=== PATIENT | male | born 1975 | race Two or more races ===

== ENCOUNTER → 2019-06-06 | Day surgery (SDC) | payer OTHER ==
[~2019-06-06] MED LIST: BUPIVACAINE 0.25% INJ 50ML VIAL ONE; DexAMETHasone SOD PHOS 10MG/1ML VIAL INJ ONE; LIDOCAINE 1% HCL (LOCAL ANESTH.) INJ 20ML MDV ONE; MEPERIDINE HCL (25 MG/ML) 1ML VIAL ONE; MIDAZOLAM HCL 1MG/1ML-2 ML VIAL ONE; ONDANSETRON HCL 4 MG/2 ML VIAL ONE; PROPOFOL 10 MG/ML 20 ML IV ONE; SUCCINYLCHOLINE CHLORIDE 20 MG/ML 10ML VIAL IV ONE; ceFAZolin 1GM/50ML 50 ML IV ONE
[2019-06-06 08:45] VITALS: BP 143/74
== END | disposition home or self-care (01) ==
LOC: SUR 05:35
PROVIDERS: ATTEND Surgery
DX: D17.1 Benign lipomatous neoplasm of skin and subcutaneous tissue of trunk (principal); Z90.81 Acquired absence of spleen; Z98.890 Other specified postprocedural states; Z79.899 Other long term (current) drug therapy
CPT/HCPCS: 21554; 88304; J0330; J0690; J1100; J2001; J2175; J2250; J2405; J2704; J3490; Q4138; A4565